=== PATIENT | female | born 1995 | race Caucasian/White ===

== ENCOUNTER 2020-06-09 18:02 | Emergency (ER) | payer SELFPAY ==
--- NOTE | 2020-06-10 11:46 | TELE ---
HPI - General Reason For Visit: VIRTUAL VISIT Time Seen by Provider: 06/10/20 11:41 History Source: Patient Exam Limitations: Clinical Condition - History of Present Illness Timing/Duration: momentarily 06/10/20 11:42 Patient with no significant past medical history presented to [facility] through [facility] [place] today requesting Covid testing. Patient had telemedicine appointment yesterday and was registered by patient was never called by provider yesterday for the visit. [facility]. phone technician Derek call from [facility] as patient is currently in the site for Covid testing. Telemedicine call initiated with patient now and patient requires Covid test to be done as she was exposed to friends with positive Covid. Patient reports she has no symptoms herself. Denies fever, cough, shortness of breath, palpitation. Denies any other symptoms Review of Systems - Review of Systems Able to Perform ROS?: Yes Limited Icelandic proficient: No Constitutional: No: Chills, Fever HEENTM: No: Symptoms Reported, See HPI, Eye Pain, Blurred Vision, Tearing, Recent change in vision, Double Vision, Cataracts, Ear Pain, Ocular Prothesis, Ear Discharge, Nose Pain, Nose Congestion, Tinnitus, Nose Bleeding, Hearing Loss, Throat Pain, Throat Swelling, Mouth Pain, Dental Problems, Difficulty Swallowing, Mouth Swelling, Other Respiratory: No: Symptoms reported, See HPI, Cough, Orthopnea, Shortness of Breath, SOB with Exertion, SOB at Rest, Stridor, Wheezing, Productive cough, Hemoptysis, Other Cardiac (ROS): No: Symptoms Reported, See HPI, Chest Pain, Edema, Irregular Heart Rate, Lightheadedness, Palpitations, Syncope, Chest Tightness, Other ABD/GI: No: Symptoms Reported, Nausea, Vomiting Musculoskeletal: No: Symptoms Reported Integumentary: No: Symptoms Reported Neurological: No: Symptoms reported, Headache, Dizziness All Other Systems: Reviewed and Negative *Physical Exam - Physical Exam General Appearance: Yes: Nourished, Appropriately Dressed. No: Apparent Distress HEENT: positive: Normal ENT Inspection Neck: positive: Supple Respiratory/Chest: negative: Respiratory Distress, Accessory Muscle Use Musculoskeletal: positive: Normal Inspection Extremity: positive: Normal Inspection, Normal Range of Motion Integumentary: positive: Normal Color Neurologic: positive: Fully Oriented, Alert, Normal Mood/Affect, Normal Response, Motor Strength 12/29 - Medical Decision Making 06/10/20 11:44 Patient with no significant past medical history presented to [facility] today requesting Covid testing. Patient had telemedicine appointment yesterday and was registered by patient was never called by provider yesterday for the visit. Patient showed up to [facility] thinking she had a Covid test. phone technician Derek call from [facility] as patient is currently in the site for Covid testing. Telemedicine call initiated with patient now and patient requires Covid test to be done as she was exposed to friends with positive Covid. Patient reports she has no symptoms herself. Denies fever, cough, shortness of breath, palpitation. Denies any other symptoms Patient chart shows patient was registered over 17 hours ago but no telemedicine visit was initiated. Telemedicine visit done with patient now. Patient asymptomatic at this time. Discussed self quarantine instructions. Covid test ordered as per patient's request. [facility]. Patient stable for discharge Discharge Diagnosis at time of Disposition: Encounter by telehealth for suspected COVID-19 - Referrals - Patient Instructions Discharge Instructions: [facility]Coronavirus Instructions, [facility] COVID-19 Isolation Protocol - Discharge Disposition: HOME Condition at time of Disposition: Stable
== END 2020-06-10 11:46 | disposition home or self-care (01) ==
LOC: JVIRT 18:02
DX: Z11.59 Encounter for screening for other viral diseases (principal)
CPT/HCPCS: C9803; Q3014-GT; U0003